=== PATIENT | male | born 1975 | race Native Hawaiian/Other Pacific Islander ===

== ENCOUNTER → 2017-05-02 | Outpatient (CLI) | payer BC ==
--- NOTE | 2017-05-02 09:37 | CT ---
EXAMINATION TYPE: CT lumbar spine wo con DATE OF EXAM: 05/02/2017 COMPARISON: NONE HISTORY: 41-year-old male Lumbar pain TECHNIQUE: Contiguous axial scanning of the lumbar spine without IV contrast. Coronal and sagittal re constructions performed. CT DLP: 957 mGycm Automated exposure control for dose reduction was used. FINDINGS: No prevertebral or paravertebral soft tissue abnormality. Transitional lumbosacral segment is noted as a lumbarized S1. Vertebral body heights are preserved. There is mild facet arthropathy in the lower lumbar spine. Trace grade 1 retrolisthesis at L4-L5. Bulging disks at multiple levels, notably at L2-L3, L4-L5, and L5-S1. At T12-L1, no canal or foraminal stenosis. L1-L2, no canal or foraminal stenosis. At L2-L3, mild diffuse disc bulge minimally impressing onto the ventral thecal sac. No significant ca nal or foraminal stenosis. At L3-L4, no significant canal or foraminal stenosis. At L4-L5, mild facet degenerative change with trace grade 1 retrolisthesis and diffuse disc bulge. Th is impresses on the ventral thecal sac without significant spinal canal stenosis. However, changes re sult in minimal inferior foraminal narrowing on the left and mild to moderate right neuroforaminal st enosis. At L5-S1, there is diffuse disc bulge and some endplate spurring particularly toward the left. Change s result in moderate left neural foraminal stenosis and mild right neuroforaminal stenosis. No spinal canal stenosis. IMPRESSION: 1. TRANSITIONAL LUMBOSACRAL SEGMENT IS NOTED A LUMBARIZED S1. 2. MILD MULTILEVEL DEGENERATIVE DISC DISEASE. BULGING DISCS AT L2-L3, L4-L5, AND L5-S1. SMALL DISC OS TEOPHYTE COMPLEX OFF TO THE LEFT AT L5-S1. 3. MILD FACET ARTHROPATHY LOWER LUMBAR SPINE WITH TRACE GRADE 1 RETROLISTHESIS AT L4-L5. 4. CHANGES RESULT IN [id number] RIGHT NEUROFORAMINAL STENOSIS AT L4-L5 AND MODERATE ON THE LEFT AT L5-S1.
== END | disposition home or self-care (01) ==
LOC: RADXRMAIN 08:01
PROVIDERS: ATTEND Family Medicine
DX: M51.36 Other intervertebral disc degeneration, lumbar region (principal); M51.27 Other intervertebral disc displacement, lumbosacral region; M43.16 Spondylolisthesis, lumbar region; M46.96 Unspecified inflammatory spondylopathy, lumbar region; M99.73 Connective tissue and disc stenosis of intervertebral foramina of lumbar region
CPT/HCPCS: 72131

== ENCOUNTER → 2017-06-08 | Outpatient (CLI) | payer BC ==
[2017-06-08 13:24] VITALS: BP 126/80; PULSE 85; RESP 16
--- NOTE | 2017-06-08 14:45 | P.CONS ---
History of Present Illness - Reason for Consult Consult date: 06/08/17 - Chief Complaint Lower back and right leg pain - History of Present Illness This is a 41-year-old male with a one-year history of lower back pain that has been getting worse lately and radiating down the right leg to the lateral aspect of the right thigh. The patient gets occasional numbness and tingling in the right leg however this feeling is not constant. The patient's pain is constant and he describes it as sharp and pressure-like. The pain gets worse with any Activity and improves by sitting on the right buttock. The pain is mostly on the right side of his spine right buttock and on the lateral aspect of the right thigh. His back pain is more intense than his right thigh pain. The patient denies any bowel or bladder dysfunction or any weakness in the lower extremities. This pain wakes the patient up at night however he denies any weight loss recently. The patient has been taking Motrin for his pain but he has not tried physical therapy. He does have history of migraine headache and neck pain for which she tried physical therapy previously with no good response to that. Social history: He lives by himself he denies using tobacco or illicit drugs he occasionally drinks alcohol. He works full-time at the [employer]. The lumbar spine MRI showed transitional lumbosacral segment, multilevel disc bulging and mild facet arthropathy with grade 1 retrolisthesis at L4 5 level. It also showed moderate right neural foraminal stenosis at the L4-5 level. Review of Systems All systems: negative Past Medical History Past Medical History: Sleep Apnea/CPAP/BIPAP Additional Past Medical History / Comment(s): migraine headaches History of Any Multi-Drug Resistant Organisms: None Reported Past Surgical History: Orthopedic Surgery Additional Past Surgical History / Comment(s): bilateral knee arthroscopy Past Anesthesia/Blood Transfusion Reactions: No Reported Reaction Past Psychological History: No Psychological Hx Reported Smoking Status: Never smoker Past Alcohol Use History: None Reported Past Drug Use History: None Reported Medications and Allergies Home Medications Medication Instructions Recorded Confirmed Type Ergocalciferol (Vitamin D2) 50,000 units PO WEEKLY 06/08/17 06/08/17 History [Vitamin D2] Ibuprofen [Motrin] 800 mg PO DAILY PRN 06/08/17 06/08/17 History SUMAtriptan SUCCINATE [Imitrex] 50 mg PO DAILY PRN 06/08/17 06/08/17 History Allergies Allergy/AdvReac Type Severity Reaction Status Date / Time No Known Allergies Allergy Verified 06/08/17 12:59 Physical Exam Vitals: Vital Signs Pulse Resp BP Pulse Ox 06/08/17 13:03 85 16 126/80 95 Intake and Output 06/07/17 06/08/17 06/08/17 22:59 06:59 14:59 Other: Weight 105.233 kg Patient Weight 06/09/17 06:59 Weight 105.233 kg - Constitutional General appearance: average body habitus, cooperative - Neurologic Neurologic: CNII-XII intact, focal deficits - Psychiatric Psychiatric: A&O x's 3, appropriate affect, intact judgment & insight Neuro exam of the lower extremities showed normal and symmetrical muscle strength and normal knee reflexes however he has absent ankle reflexes bilaterally and symmetrically. Jm's test mildly positive on the right side. Straight leg raising test positive at 60. He has tenderness in the lumbar paravertebral area on the right side. Facet loading test is positive. He has normal range of motion of the lumbar spine with more pain with flexion than with extension. Lungs are clear to auscultation Heart is regular Assessment and Plan Plan: This is a 41-year-old male with what seems to be right lumbar radiculopathy and lumbar arthropathy. The patient's pain is mostly on the right side of his spine and in the right leg. I will refer the patient to have physical therapy and also we'll schedule him for transforaminal epidural steroid injection at the L4 5 level on the right side using fluoroscopy for guidance. The above-mentioned procedure was explained to the patient and his questions were answered. I thank you for the referral.
== END | disposition home or self-care (01) ==
LOC: PNWHC3 12:50
PROVIDERS: ATTEND Anesthesiology
DX: G89.29 Other chronic pain (principal); F10.20 Alcohol dependence, uncomplicated; M99.73 Connective tissue and disc stenosis of intervertebral foramina of lumbar region; M51.16 Intervertebral disc disorders with radiculopathy, lumbar region; M43.16 Spondylolisthesis, lumbar region; M46.86 Other specified inflammatory spondylopathies, lumbar region; G47.33 Obstructive sleep apnea (adult) (pediatric); G43.909 Migraine, unspecified, not intractable, without status migrainosus; Z99.89 Dependence on other enabling machines and devices; Z98.890 Other specified postprocedural states; Z79.899 Other long term (current) drug therapy; Z79.1 Long term (current) use of non-steroidal anti-inflammatories (NSAID)
CPT/HCPCS: 99211

== ENCOUNTER 2017-06-09 08:36 | Day surgery (SDC) | payer BC ==
[~2017-06-09 08:36] MED LIST: LACTATED RINGERS 1,000 ML IV SCH
[2017-06-09 09:16] VITALS: TEMP 97.5
--- NOTE | 2017-06-09 11:09 | P.PCN ---
Date of Procedure: 06/09/17 Procedure(s) Performed: PREOPERATIVE DIAGNOSIS: Lumbar radiculopathy in right L4-5 distribution. Lumbar facet arthropathy. POSTOPERATIVE DIAGNOSIS: same as preop diagnosis PROCEDURE 1. Transforaminal epidural steroid injection under fluoroscopic guidance at right L4-5 level. 2. Lumbar epidurogram : ANESTHESIA: Local with 1% lidocaine 3 ml , moderate sedation with intravenous Versed 2 mg and fentanyle 100 micrograms. EBL: Minimal PROCEDURE INDICATION: The patient with low back pain and radiculopathy symptoms unresponsive to conservative treatment. PROCEDURE DESCRIPTION / TECHNIQUE: The patient was seen and identified in the preoperative area. Risks, benefits , complications, and alternatives were discussed with the patient. The patient agreed to proceed with the procedure and signed the consent. IV was started, and vital signs were stable. Patient was taken to the OR and time out was completed. The patient was placed in the prone position on procedure table and a pillow was placed under the abdomen to reduce lumbar lordosis. The lumbosacral area was prepped and draped in the usual sterile fashion. Critical pause was taken. Vital signs were closely monitored during the procedure. Conscious sedation was used during the procedure to decrease patients anxiety. Using oblique fluoroscopy, the chin of the ``Haider dog at right L4-5 level was identified, and the skin and deeper tissues just below was localized with 1 % lidocaine. Subsequently, a 22-gauge 3.5-inch spinal needle was advanced under a tunneled view fluoroscopic guidance just underneath the chin of the ``Haider dog at the L4-5 ,. Under lateral fluoroscopy, the needle was then advanced to the posterior border of the Right L4-5 interforaminal space. After negative aspiration of CSF and blood and with no paresthesias, 1 mL ofomnipaque-240 contrast dye was injected excellent epidurogram and outlining of the right nerve root Subsequently, 3 mL of block solution containing 20 mg Dexamethason and 2 mL of Lidocaine 1% was injected. Needle was removed and the skin was cleansed, and bandages were applied. COMPLICATIONS: None COMMENTS: DISPOSITION / PLANS: The patient was placed in a supine position and transferred to the recovery area in a stable condition for observation. There was no evidence of lower extremity motor or sensory deficit after the procedure. Patient was discharged from the recovery room after meeting discharge criteria. Home discharge instructions were given to the patient by the staff. The patient was reexamined prior to discharge.
[2017-06-09] MEDS ORDERED: IV FLUID CONTINUATION 600 ML IV ONE (11:18)
[2017-06-09 11:30] VITALS: RESP 16
[2017-06-09 11:32] VITALS: BP 114/73; PULSE 63
--- NOTE | 2017-06-09 14:07 | FL ---
Fluoroscopy History: Transforaminal injection. 9sec fluoro time, 3 images scanned
== END 2017-06-09 12:04 | disposition home or self-care (01) ==
LOC: ORPAIN 08:36
PROVIDERS: ATTEND Specialist
DX: M54.16 Radiculopathy, lumbar region (principal); M46.96 Unspecified inflammatory spondylopathy, lumbar region; G47.30 Sleep apnea, unspecified; Z99.89 Dependence on other enabling machines and devices
CPT/HCPCS: 64483; J2250; J3301; Q9965; J3010; 99152

== ENCOUNTER 2017-07-06 06:08 | Day surgery (SDC) | payer BC ==
[2017-07-05 11:55] VITALS: BMI 31.3
[2017-07-06 06:34] VITALS: TEMP 97.6
[2017-07-06] MEDS ORDERED: LACTATED RINGERS 1,000 ML IV ONE ×2 (06:43)
[2017-07-06] MEDS ORDERED: LIDOCAINE 1%-EPI 1:100,000 30 ML VIAL SQ ONE (06:44)
[2017-07-06] MEDS ORDERED: LACTATED RINGERS 1,000 ML IV SCH (07:00)
[2017-07-06] MEDS ORDERED: IV FLUID CONTINUATION 1,000 ML IV ONE ×2 (07:24)
[2017-07-06] MEDS ORDERED: ONDANSETRON 4 MG/2 ML VIAL IVP STA (07:27)
[2017-07-06] MEDS ORDERED: ONDANSETRON 4 MG/2 ML VIAL IVP ONE (07:29)
--- NOTE | 2017-07-06 07:31 | P.PCN ---
Date of Procedure: 07/06/17 Procedure(s) Performed: PREOPERATIVE DIAGNOSIS: 1- Lumbar Degenerative Disc Diseases 2-Lumbar spondylosis with Facet arthropathy without myelopathy 3-lumbar radiculopathy. POSTOPERATIVE DIAGNOSIS: 1-Lumber Degenerative Disc Diseases 2-Lumbar spondylosis with Facet arthropathy without myelopathy. 3-lumbar radiculopathy PROCEDURE 1. Lumbar epidural steroid injection under fluoroscopic guidance at the L4-5 level. 2. Lumbar epidurogram. ANESTHESIA: Local with 1% lidocaine 3 ml and , moderate sedation with intravenous Versed 2 mg ,and fentanyle 100 Mcg EBL: Minimal PROCEDURE INDICATION: The patient with low back pain and radiculitis symptoms unresponsive to conservative treatment. Fluoroscopy was used to optimize visualization of the needle placement and to maximize safety. Patient was scheduled to have transforaminal epidural steroid injection, but because patient had partial benefit to the transforaminal epidural steroid injection that was done a few weeks ago, and because patient had multilevel lumbar degenerative disc disease, I discussed with the patient the option of changing the procedure 2 lumbar epidural steroid injection, instead of transforaminal indiscreet patient could benefit more. PROCEDURE DESCRIPTION / TECHNIQUE: The patient was seen and identified in the preoperative area. Risks, benefits , complications including but not limited to infections ,bleeding ,allergic reaction to the medications ,nerve damage and not complete pain releife , and alternatives were discussed with the patient. The patient agreed to proceed with the procedure and signed the consent. IV was started, and vital signs were stable. Patient was taken to the OR and time out was completed. The patient was placed in the prone position on procedure table and a pillow was placed under the abdomen to reduce lumbar lordosis. The lumbosacral area was prepped and draped in the usual sterile fashion.ere closely monitored during the procedure. Conscious sedation was used during the procedure to decrease patients anxiety. Vital signs was monitered during the entire procedure. Using anterior-posterior fluoroscopy, the L4-5 interlaminar space was identified and the skin over this site was marked and then infiltrated with 1% lidocaine subcutaneously. Subsequently, a 20-gauge Tuohy epidural needle was inserted and advanced toward the epidural space using the ``Loss of resistance technique and guided by AP and lateral fluoroscopy. The correct needle position in the epidural space was verified with the injection of 2 mL of the water soluble contrast dye Omnipaque 180 contrast and observing an excellent epidurogram with the epidural spread of the dye, after negative aspiration for blood and CSF and in the absence of paresthesias. Again after negative aspiration, a 6 ml mixture containing 80 kenalog ,and 2 ml of preservative free Normal Saline, and 2 ml of preservative free lidocaine 1% solution was injected and a washout of epidurogram was seen. Needle was withdrawn intact, skin was cleansed, and bandages were applied. COMPLICATIONS: None DISPOSITION / PLANS: The patient was placed in a supine position and transferred to the recovery area in a stable condition for observation. There was no evidence of lower extremity motor or sensory deficit after the procedure. Patient was discharged from the recovery room after meeting discharge criteria. Home discharge instructions were given to the patient by the staff. The patient was reexamined prior to discharge. The patient will schedule a follow up in the clinic in 2-4 weeks.
[2017-07-06 07:41] VITALS: RESP 18
[2017-07-06 07:53] VITALS: BP 106/64; PULSE 65
--- NOTE | 2017-07-06 09:16 | FL ---
Fluoroscopy HISTORY: Pain 3 seconds fluoroscopy time supplied to the referring clinician. 1 intraoperative C-arm images docume nt the procedure. See dictated report from anesthesia.
== END 2017-07-06 08:33 | disposition home or self-care (01) ==
LOC: ORPAIN 06:08
PROVIDERS: ATTEND Specialist
DX: M51.16 Intervertebral disc disorders with radiculopathy, lumbar region (principal); M47.26 Other spondylosis with radiculopathy, lumbar region
CPT/HCPCS: 62323; J2250; J3301; J2405; J3010; Q9966; 64483

== ENCOUNTER 2017-07-06 20:58 | Emergency (ER) | payer BC ==
[2017-07-06 21:06] VITALS: TEMP 98.2
[2017-07-06] MEDS ORDERED: SODIUM CHLORIDE 0.9% 1,000 ML IV STA (21:49)
[2017-07-06] MEDS ORDERED: FAMOTIDINE 20 MG/2 ML VIAL IV STA (21:49)
[2017-07-06] MEDS ORDERED: MORPHINE SULFATE/PF 10MG/10ML VL IVP STA (21:49)
[2017-07-06] MEDS ORDERED: diphenhydrAMINE 50 MG/ML 1 ML VIAL IVP STA (21:49)
[2017-07-06] MEDS ORDERED: METOCLOPRAMIDE 5 MG/ML 2 ML VIAL IVP STA (21:49)
--- NOTE | 2017-07-06 21:56 | ED ---
General Adult HPI - General Chief complaint: Dizziness Stated complaint: post op complications Time Seen by Provider: 07/06/17 21:27 Source: patient, RN notes reviewed Mode of arrival: ambulatory Limitations: no limitations - History of Present Illness Initial comments: Patient is a pleasant 41-year-old male presenting to the emergency department for not feeling well after epidural injection. Patient did have epidural steroid injection done this morning with pain management. This was of his lower back. Patient states since that time he has been having nausea and lightheadedness and headache. Headache is positional and worse with upright position and improves with lying down. Patient has not been able to eat today. Patient has been drowsy today. No isolated area of weakness. No loss of control of bowel or bladder. - Related Data Home Medications Medication Instructions Recorded Confirmed Ergocalciferol (Vitamin D2) 50,000 units PO MO 06/08/17 07/06/17 [Vitamin D2] Ibuprofen [Motrin] 800 mg PO DAILY PRN 06/08/17 07/06/17 SUMAtriptan SUCCINATE [Imitrex] 50 mg PO DAILY PRN 06/08/17 07/06/17 Modafinil [Provigil] 200 mg PO DAILY 07/05/17 07/06/17 Topiramate [Trokendi Xr] 100 mg PO QAM 07/05/17 07/06/17 Pantoprazole Sodium [Protonix] 40 mg PO DAILY 07/06/17 07/06/17 Previous Rx's Medication Instructions Recorded Metoclopramide HCl [Reglan] 10 mg PO Q6HR PRN #15 tablet 07/06/17 Allergies Allergy/AdvReac Type Severity Reaction Status Date / Time No Known Allergies Allergy Verified 07/06/17 21:50 Review of Systems ROS Statement: Those systems with pertinent positive or pertinent negative responses have been documented in the HPI. ROS Other: All systems not noted in ROS Statement are negative. Constitutional: Denies: fever Eyes: Denies: eye pain ENT: Denies: ear pain Respiratory: Denies: cough Cardiovascular: Denies: chest pain Endocrine: Reports: fatigue Gastrointestinal: Reports: nausea. Denies: abdominal pain, vomiting Genitourinary: Denies: dysuria Musculoskeletal: Reports: back pain (Chronic and unchanged) Skin: Denies: rash Neurological: Reports: headache. Denies: weakness, confusion Past Medical History Past Medical History: GERD/Reflux, Sleep Apnea/CPAP/BIPAP Additional Past Medical History / Comment(s): migraines, bulging,herniated and fused disks L2-S1 History of Any Multi-Drug Resistant Organisms: None Reported Past Surgical History: Orthopedic Surgery Additional Past Surgical History / Comment(s): bilateral knee arthroscopy Past Anesthesia/Blood Transfusion Reactions: No Reported Reaction Past Psychological History: No Psychological Hx Reported Smoking Status: Never smoker Past Alcohol Use History: Occasional Past Drug Use History: None Reported - Past Family History Mother Family Medical History: No Reported History General Exam Limitations: no limitations General appearance: alert, in no apparent distress Head exam: Present: atraumatic Eye exam: Present: normal appearance, PERRL, EOMI. Absent: nystagmus ENT exam: Present: normal oropharynx Neck exam: Present: normal inspection. Absent: tenderness, meningismus Respiratory exam: Present: normal lung sounds bilaterally Cardiovascular Exam: Present: regular rate, normal rhythm GI/Abdominal exam: Present: soft. Absent: tenderness Extremities exam: Present: normal inspection Back exam: Present: normal inspection, other (No rash or swelling.). Absent: tenderness Neurological exam: Present: alert, CN II-XII intact. Absent: motor sensory deficit Psychiatric exam: Present: normal affect, normal mood Skin exam: Present: normal color. Absent: rash Course Vital Signs 07/06/17 07/06/17 21:04 22:14 Temperature 98.2 F Pulse Rate 84 76 Respiratory 16 18 Rate Blood Pressure 132/75 120/68 O2 Sat by Pulse 98 95 Oximetry Medical Decision Making - Medical Decision Making Patient reevaluated and states symptoms have improved and are tolerable at this time. Patient would like to try to go home and see if he continues to feel better. Patient is offered paging for anesthesiology for possible blood patch however does not want to do that at this time. He states if symptoms continue he will consider this tomorrow. Patient is advised to return if symptoms worsen or other concerns. Disposition Clinical Impression: Headache Disposition: HOME SELF-CARE Condition: Stable Instructions: Dizziness (ED), Acute Headache (ED) Additional Instructions: Please follow-up with primary care physician in the next day or 2 for recheck. Please also follow-up with Dr. Cobb in the next day or 2. If symptoms worsen you may be a candidate for blood patch. Return for increased pain, fevers, weakness, loss of control of bowel or bladder, redness or swelling, worsening symptoms or other concerns. Prescriptions: Metoclopramide HCl [Reglan] 10 mg PO Q6HR PRN #15 tablet PRN Reason: Nausea Referrals: Yuri Gee MD [Primary Care Provider] - 1-2 days Time of Disposition: 22:53
[2017-07-06 22:15] VITALS: BP 120/68; RESP 18
[2017-07-06] MEDS ORDERED: ACET/COD 300 MG/30 MG STARTER PACK 6 TAB BTL PO STA (22:53)
[2017-07-06 23:07] VITALS: PULSE 61
== END 2017-07-06 23:10 | disposition home or self-care (01) ==
LOC: EC 20:58
DX: R51 Headache (principal); R42 Dizziness and giddiness; R11.0 Nausea; K21.9 Gastro-esophageal reflux disease without esophagitis; G47.30 Sleep apnea, unspecified; Z86.69 Personal history of other diseases of the nervous system and sense organs; Z79.899 Other long term (current) drug therapy
CPT/HCPCS: 96361; 96374; 96375; 99284

== ENCOUNTER → 2017-07-12 | Day surgery (SDC) | payer BC ==
[2017-07-12 15:47] VITALS: RESP 18; TEMP 98.1
[2017-07-12 16:03] VITALS: BP 144/79; PULSE 86
--- NOTE | 2017-07-12 17:24 | P.PCN ---
Date of Procedure: 07/12/17 Procedure(s) Performed: Procedure= lumbar epidural blood patch. Preoperative diagnosis= postdural puncture headache. Postoperative diagnoses= post dural puncture headache. Indication for the procedure= patient developed headache after epidural steroid injection-, which was done last week, headache persists in spite of conservative treatment, there is no focal neurological deficit, no fever, no neck stiffness, headache worse with sitting and standing position, and improved with lying supine, for this reason patient is a good candidate for epidural blood patch. anesthesia= local infiltration with lidocaine 1% 3 mL. only Complications= none. Description of the procedure= patient identified risks and benefits of the procedure explained to the patient and patient agreed with proceeding, vital signs monitored during the procedure and IV sedation given to decrease anxiety, Back lumbar area prepped with chlorhexidine 3 times, then drape applied the local infiltration of the skin and subcutaneous tissue with lidocaine 1% 3 mL at L5-S1 interlaminar space then 18-gauge Tuohy needle advanced slowly at L5-S1 interlaminar space, There was positive loss of resistance to normal saline, no heme no paresthesia no cerebrospinal fluid, then after that the blood taken from the patient under strict sterile technique, and after the left antecubital area prepped with a chlorhexidine 3 times using 20-gauge Angiocath, and under sterile technique the 20 ML of the block taken from the patient injected in the epidural space after negative aspiration for heme or CSF and there was no paresthesia then the needle removed intact the skin cleaned and the , bandage applied and patient discharged home in stable condition after discharge criteria met, and patient will follow up with the clinic in 2-4 weeks
== END | disposition home or self-care (01) ==
LOC: PROCWHC3 15:09
PROVIDERS: ATTEND Specialist
DX: G97.1 Other reaction to spinal and lumbar puncture (principal); M51.36 Other intervertebral disc degeneration, lumbar region
CPT/HCPCS: 62273

== ENCOUNTER 2017-07-22 20:57 | Emergency (ER) | payer BC ==
[2017-07-22] MEDS ORDERED: SODIUM CHLORIDE 0.9% 500 ML IV ONE (21:28)
[2017-07-22 21:50] LABS: Basophils % (A) 0 %; Eosinophils # (A) 0.2 k/uL (0-0.7); Eosinophils % (A) 2 %; HCT 43.8 % (39.0-53.0); HGB 14.6 gm/dL (13.0-17.5); Lymphocytes # (A) 2.1 k/uL (1.0-4.8); Lymphocytes % (A) 20 %; MCH 30.2 pg (25.0-35.0); MCHC 33.4 g/dL (31.0-37.0); MCV 90.4 fL (80.0-100.0); Mean Platelet Volume 7.8; Monocytes # (A) 0.9 k/uL (0-1.0); Monocytes % (A) 8 %; Neutrophils % (A) 67 %; Platelet Count 271 k/uL (150-450); RBC 4.85 m/uL (4.30-5.90); RDW 13.1 % (11.5-15.5); WBC 10.5 k/uL (3.8-10.6)
--- NOTE | 2017-07-22 21:58 | XR ---
EXAMINATION TYPE: XR abdomen 2V DATE OF EXAM: 07/22/2017 COMPARISON: 02/25/2010 HISTORY: Abdominal pain TECHNIQUE: 3 views FINDINGS: Bowel gas pattern is normal. There is no sign of intestinal obstruction or pneumoperitoneum . Fecal pattern appears normal. There are no pathologic calcifications over the kidneys. Lung bases a re clear. IMPRESSION: Nonacute abdomen. No change.
[2017-07-22 22:01] LABS: Albumin 3.9 g/dL (3.5-5.0); Calcium 9.5 mg/dL (8.4-10.2); Potassium 3.6 mmol/L (3.5-5.1); Total Bilirubin 0.2 mg/dL (0.2-1.3); Total Protein 6.8 g/dL (6.3-8.2)
[2017-07-22 22:18] VITALS: PULSE 63; RESP 18
--- NOTE | 2017-07-22 22:39 | ED ---
General Adult HPI - General Chief complaint: GI Bleed Stated complaint: Rectal Bleeding Time Seen by Provider: 07/22/17 21:12 Source: patient, RN notes reviewed Mode of arrival: ambulatory Limitations: no limitations - History of Present Illness Initial comments: Chief complaint history of present illness a 41-year-old male here with a complaint of blood per rectum. The patient reports that while at home short while ago he had a hard bowel movement and then was followed by large amount of fresh appearing blood. When he wiped there was blood on the paper. Since then no bowel movement no blood. Patient denies any history of having any GI bleeding in the past. Denies history of fissures or hemorrhoids. Does not take narcotics, denies frequent episodes of constipation or hard stools. But he did have hard stool preceding denies bleeding. He also reports she's had some discomfort to the right lower quadrant for 3 or 4 days. No significant change in appetite. No nausea no vomiting. - Related Data Home Medications Medication Instructions Recorded Confirmed Ergocalciferol (Vitamin D2) 50,000 units PO MO 06/08/17 07/22/17 [Vitamin D2] Ibuprofen [Motrin] 800 mg PO DAILY PRN 06/08/17 07/22/17 SUMAtriptan SUCCINATE [Imitrex] 50 mg PO DAILY PRN 06/08/17 07/22/17 Topiramate [Trokendi Xr] 100 mg PO QAM 07/05/17 07/22/17 Pantoprazole Sodium [Protonix] 40 mg PO DAILY 07/06/17 07/22/17 Allergies Allergy/AdvReac Type Severity Reaction Status Date / Time No Known Allergies Allergy Verified 07/22/17 22:04 Review of Systems ROS Statement: Those systems with pertinent positive or pertinent negative responses have been documented in the HPI. Review of systems no headache chest pain shortness of breath or problems. He 's had right lower quadrant discomfort for 3 days. No change in appetite. No flank pain. No rectal pain. He did say he had some GI bleeding after passing a hard stool just prior to coming emergency room. All systems are reviewed. Patient denies any significant past medical problems GERD, sleep apnea and bulging disks [id number]. Patient has had both knees scoped. Patient denies any family history. Nonsmoker occasional alcohol use. No ALLERGIES. ROS Other: All systems not noted in ROS Statement are negative. Past Medical History Past Medical History: GERD/Reflux, Sleep Apnea/CPAP/BIPAP Additional Past Medical History / Comment(s): migraines, bulging,herniated and fused disks L2-S1 History of Any Multi-Drug Resistant Organisms: None Reported Past Surgical History: Orthopedic Surgery Additional Past Surgical History / Comment(s): bilateral knee arthroscopy Past Anesthesia/Blood Transfusion Reactions: No Reported Reaction Past Psychological History: No Psychological Hx Reported Smoking Status: Never smoker Past Alcohol Use History: Occasional Past Drug Use History: None Reported - Past Family History Mother Family Medical History: No Reported History General Exam - General Exam Comments Initial Comments: General: The patient is awake and alert, in no distress, and does not appear acutely ill. Neck: The neck is supple, Cardiovascular: No complaint chest pain, shortness of breath or palpitations. Respiratory: No shortness of breath or wheezing. Gastrointestinal: Mild discomfort with palpation to the right lower quadrant but no rebound or referred pain. Rectal exam there are some hemorrhoids but no apparent bleeding hemorrhoids. No fissure noted. Rectal exam no masses within the proximal one half inches. No blood on the examining finger. There is no tenderness to palpation in the midline. There is no obvious deformity. No rashes noted. Musculoskeletal: Normal upper and lower extremities Limitations: no limitations Course Vital Signs 07/22/17 07/22/17 07/23/17 20:59 22:17 00:58 Temperature 97.5 F L 97.4 F L Pulse Rate 89 63 63 Respiratory 16 18 18 Rate Blood Pressure 136/80 120/62 116/72 O2 Sat by Pulse 97 98 97 Oximetry Medical Decision Making - Medical Decision Making Medical decision making; the 41-year-old male here because of after having had passed a hard stool he noticed blood afterwards. Labs show white count 10 hemoglobin 14 hematocrit of 43 with a potassium 3.6. BUN 17 creatinine 1.3 GFR 69. Sugar 105. X-ray of the abdomen was done and reviewed by radiologist his impression is bowel gas pattern is normal. There is no sign of intestinal structure or pneumoperitoneum. Fecal pattern appears normal. There is no pathologic calcifications over the kidneys. Lung bases are clear. Impression nonacute abdomen. No changes. As read by Dr. Whitney Patient will have somewhat IV fluids. Still discomfort to the right lower quadrant. No rebound or referred pain. No blood per rectum since last examination. We discussed CT of the abdomen IV and oral contrast to rule out diverticulitis, or possibility of colitis or appendicitis. CT of the abdomen was done with IV and oral contrast. CT was reviewed by radiologist entire report was reviewed. Significant impression; negative computed tomography scan of the abdomen and pelvis. The radiologist does not see a cause for GI bleeding. Normal appendix. As read by Dr. Whitney I discussed with the patient the findings. The plant this size for the patient to follow-up with his family physician he will need a colonoscopy for further evaluation. If the bleeding continues or gets worse she is to return emergency room. - Lab Data Result diagrams: 07/22/17 21:38 07/22/17 21:38 Lab Results 07/22/17 07/22/17 Range/Units 21:38 21:38 WBC 10.5 (3.8-10.6) k/uL RBC 4.85 (4.30-5.90) m/uL Hgb 14.6 (13.0-17.5) gm/dL Hct 43.8 (39.0-53.0) % MCV 90.4 (80.0-100.0) fL MCH 30.2 (25.0-35.0) pg MCHC 33.4 (31.0-37.0) g/dL RDW 13.1 (11.5-15.5) % Plt Count 271 (150-450) k/uL Neutrophils % 67 % Lymphocytes % 20 % Monocytes % 8 % Eosinophils % 2 % Basophils % 0 % Neutrophils # 7.0 (1.3-7.7) k/uL Lymphocytes # 2.1 (1.0-4.8) k/uL Monocytes # 0.9 (0-1.0) k/uL Eosinophils # 0.2 (0-0.7) k/uL Basophils # 0.0 (0-0.2) k/uL Sodium 146 H (137-145) mmol/L Potassium 3.6 (3.5-5.1) mmol/L Chloride 109 H (98-107) mmol/L Carbon Dioxide 22 (22-30) mmol/L Anion Gap 15 mmol/L BUN 17 (9-20) mg/dL Creatinine 1.30 H (0.66-1.25) mg/dL Est GFR (CKD-EPI)AfAm 80 (>60 ml/min/1.73 sqM) Est GFR (CKD-EPI)NonAf 69 (>60 ml/min/1.73 sqM) Glucose 105 H (74-99) mg/dL Calcium 9.5 (8.4-10.2) mg/dL Total Bilirubin 0.2 (0.2-1.3) mg/dL AST 18 (17-59) U/L ALT 43 (21-72) U/L Alkaline Phosphatase 49 (38-126) U/L Total Protein 6.8 (6.3-8.2) g/dL Albumin 3.9 (3.5-5.0) g/dL Disposition Clinical Impression: Lower GI bleed Disposition: HOME SELF-CARE Condition: Good Instructions: Gastrointestinal Bleeding (ED) Additional Instructions: Monitor stool and rectal bleeding. Call follow up with your family physician. Return emergency room if there is significant change or increase. Return if you have pain. Strongly suggested further evaluation with colonoscopy. Take Tylenol for pain Referrals: Yuri Gee MD [Primary Care Provider] - 1-2 days Time of Disposition: 01:13
[2017-07-22] MEDS ORDERED: IOPAMIDOL-300 CONTRAST 30 ML VIAL (ORAL USE) PO PRN (22:45)
[2017-07-22] MEDS ORDERED: RX INFO: IV CONTRAST WAS GIVEN 1 EACH MISC MISCELLANE PRN (22:45)
[2017-07-23 00:59] VITALS: BP 116/72; TEMP 97.4
--- NOTE | 2017-07-23 01:08 | CT ---
EXAMINATION TYPE: CT abdomen pelvis w con DATE OF EXAM: 07/23/2017 COMPARISON: NONE HISTORY: GI bleed/bloody stool CT DLP: 1498.40 mGycm Automated exposure control for dose reduction was used. TECHNIQUE: Helical acquisition of images was performed from the lung bases through the pelvis. CONTRAST: Performed with Oral Contrast and with IV Contrast, patient injected with 100 mL of Isovue 300. FINDINGS: Lung bases are clear. There is no pleural effusion. There is no pericardial effusion. Heart appears b orderline enlarged. Liver spleen pancreas gallbladder appear normal. Bile ducts are not dilated. Gallbladder is contracte d. There is no adrenal mass. Kidneys show satisfactory contrast opacification. There is no hydronephrosi s. Ureters are not dilated. There is some fullness of the proximal right ureter. There is no evidence of a ureteral calculus. Delayed images show normal opacification of the collecting systems. I do not see evidence of renal obstruction. Appendix appears normal. The graft there is no retroperitoneal ad enopathy. I see no intestinal wall thickening. There are no dilated loops. Bladder distends smoothly. There is no sign of a pelvic mass. I see no bony destructive process. IMPRESSION: NEGATIVE CT SCAN OF THE ABDOMEN AND PELVIS. I DO NOT SEE A CAUSE FOR GI BLEEDING. NORMAL APPENDIX. BORDERLINE CARDIOMEGALY.
== END 2017-07-23 01:23 | disposition home or self-care (01) ==
LOC: EC 20:57
DX: K92.1 Melena (principal); G43.909 Migraine, unspecified, not intractable, without status migrainosus; K21.9 Gastro-esophageal reflux disease without esophagitis; G47.30 Sleep apnea, unspecified; Z99.89 Dependence on other enabling machines and devices; Z79.899 Other long term (current) drug therapy
CPT/HCPCS: 99285; 96360; 96361; 36415; 80053; 85025; 74019; 74177; Q9967

== ENCOUNTER 2017-09-01 07:04 | Day surgery (SDC) | payer BC ==
[2017-08-29 15:47] VITALS: BMI 31.4
[2017-09-01 07:31] VITALS: RESP 18; TEMP 98.4
[2017-09-01] MEDS ORDERED: LACTATED RINGERS 1,000 ML IV ONE (07:34)
[2017-09-01] MEDS ORDERED: LIDOCAINE 1% 20 ML VIAL (10MG/ML) FOR IV START INTRADERMA ONE (07:35)
--- NOTE | 2017-09-01 08:05 | P.PCN ---
Date of Procedure: 09/01/17 Surgeon: Alberto Kebede Description of Procedure: DESCRIPTION OF PROCEDURE(S): PREOPERATIVE DIAGNOSIS: Lumbar radiculopathy POSTOPERATIVE DIAGNOSIS: Lumbar radiculopathy PROCEDURE 1. Transforaminal epidural steroid injection under fluoroscopic guidance right L4 2. Lumbar epidurogram ANESTHESIA: Local with 1% lidocaine 3 ml ; IV sedation with Versed 2 mg and fentanyl 100 micrograms. PROCEDURE INDICATION: The patient with low back pain and radiculopathy symptoms unresponsive to conservative treatment. PROCEDURE DESCRIPTION / TECHNIQUE: The patient was seen and identified in the preoperative area. Risks, benefits, complications, and alternatives were discussed with the patient. The patient agreed to proceed with the procedure and signed the consent. IV was started, and vital signs were stable. Patient was taken to the OR and time out was completed. The patient was placed in the prone position on procedure table and a pillow was placed under the abdomen to reduce lumbar lordosis. The lumbosacral area was prepped and draped in the usual sterile fashion. Vital signs were closely monitored during the procedure. Conscious sedation was used. Using oblique fluoroscopy, the chin of the ``Haider dog and the skin and deeper tissues just below was localized with 1% lidocaine. Subsequently, a 22- gauge 3.5-inch spinal needle was advanced under a tunneled view fluoroscopic guidance just underneath the chin of the ``Haider dog . Under lateral fluoroscopy, the needle was then advanced to the posterior border of the foramen. After negative aspiration of CSF and blood and with no paresthesias, 1 mL of Omnipaque-240 contrast dye was injected and there was no evidence of intravascular injection. The injectate solution of 20 mg of Decadron and 1/2 mL of 0.5% Marcaine was then delivered. The needle was withdrawn intact. At the end of the procedure, skin was cleaned, and bandages were applied. COMPLICATIONS: None COMMENTS: DISPOSITION / PLANS: The patient was placed in a supine position and transferred to the recovery area in a stable condition for observation. There was no evidence of lower extremity motor or sensory deficit after the procedure. Patient was discharged from the recovery room after meeting discharge criteria. Home discharge instructions were given to the patient by the staff. The patient was reexamined prior to discharge. He will follow up for repeat of this procedure in the procedure room on an as-needed basis.
[2017-09-01] MEDS ORDERED: IV FLUID CONTINUATION 1,000 ML IV ONE (08:09)
[2017-09-01] MEDS ORDERED: LACTATED RINGERS 1,000 ML IV SCH (08:15)
[2017-09-01 08:30] VITALS: BP 125/78; PULSE 62
--- NOTE | 2017-09-01 08:34 | FL ---
Fluoroscopy HISTORY: Pain 5 seconds fluoroscopy time supplied to the referring clinician. 3 intraoperative C-arm images docume nt the procedure. See dictated report from anesthesia.
== END 2017-09-01 08:50 | disposition home or self-care (01) ==
LOC: ORPAIN 07:04
PROVIDERS: ATTEND Pain Medicine Pain Medicine
DX: M54.16 Radiculopathy, lumbar region (principal)
CPT/HCPCS: 64483; J2250; J3010

== ENCOUNTER 2017-09-27 07:45 | Day surgery (SDC) | payer BC ==
[2017-09-22 09:19] VITALS: BMI 31.4
[2017-09-27 08:46] VITALS: TEMP 97.8
[2017-09-27] MEDS ORDERED: LIDOCAINE 1% 20 ML VIAL (10MG/ML) FOR IV START INTRADERMA ONE (08:49)
[2017-09-27] MEDS ORDERED: LACTATED RINGERS 1,000 ML IV ONE (08:49)
[2017-09-27] MEDS ORDERED: LACTATED RINGERS 1,000 ML IV SCH (09:00)
[2017-09-27 10:15] VITALS: BP 118/65; PULSE 81; RESP 20
[2017-09-27] MEDS ORDERED: IV FLUID CONTINUATION 1,000 ML IV ONE (10:15)
--- NOTE | 2017-09-27 10:18 | P.PCN ---
Date of Procedure: 09/27/17 Surgeon: Woodrow Aragon Pathology: none sent Condition: stable Disposition: PACU Description of Procedure: PREOPERATIVE DIAGNOSIS: 1-Lumbar radiculitis POSTOPERATIVE DIAGNOSIS: 1-Lumbar radiculitis PROCEDURE: 1. Transforaminal epidural steroid injection under fluoroscopic guidance at right L4 level 2. Lumbar epidurogram. ANESTHESIA: Conscious sedation. EBL: Minimal PROCEDURE INDICATION: The patient with low back and leg pain that has been unresponsive to conservative management, #2 today. No use of blood thinners. Last procedure gave only 4 days' relief. PROCEDURE DESCRIPTION / TECHNIQUE: The patient was seen and identified in the preoperative area. Risks, benefits, complications, and alternatives were discussed with the patient, including but not limited to bleeding, infection, nerve damage, allergic reactions to medications, and incomplete pain relief. The patient agreed to proceed with the procedure and signed the consent after all questions were answered. IV was started, and vital signs were stable. Patient was taken to the OR and time out was completed to confirm patient position, procedure, laterality of pain, and allergies. The patient was placed in the prone position on procedure table and a pillow was placed under the abdomen to reduce lumbar lordosis. The lumbosacral area was prepped and draped in the usual sterile fashion. Critical pause was taken. Vital signs were closely monitored during the procedure. Conscious sedation was used during the procedure to decrease patients anxiety. Using oblique fluoroscopy, the chins of the Haider dog at right level were identified. After localization, a 22-gauge 3.5-inch spinal needle was advanced under a tunneled view fluoroscopic guidance just underneath the chin of the Haider dog at the right L4 vertebrae. Under lateral fluoroscopy, the needle was then advanced to the posterior border of the interforaminal spaces at the L4 level. After negative aspiration of CSF and blood and with no paresthesias, 0.5 mL of Isovue-200 contrast dye was injected at each level demonstrating excellent epidurogram and outlining the nerve roots. Subsequently, after repeat negative aspiration and confirmation of the epidurogram in the AP view, 3 mL of 3 ml block solution containing 20 mg of dexamethasone and 1 mL of PF 1% lidocaine was injected. At the end of the procedure, needles were removed intact, skin was cleansed, and bandages were applied. COMPLICATIONS: None DISPOSITION / PLANS: The patient was placed in a supine position and transferred to the recovery area in a stable condition for observation. There was no evidence of lower extremity motor or sensory deficit after the procedure. Patient was discharged from the recovery room after meeting discharge criteria. Home discharge instructions were given to the patient by the staff. The patient was reexamined prior to discharge and there were no issues. The patient will schedule a follow up in clinic in 4-6 weeks to discuss further options.
--- NOTE | 2017-09-27 11:09 | FL ---
EXAMINATION TYPE: FL guided pain mgmt statistic DATE OF EXAM: 09/27/2017 HISTORY: Flouroscopy time 10 seconds of fluoroscopy provided. IMPRESSION: 1. Fluoroscopy time.
== END 2017-09-27 10:19 | disposition home or self-care (01) ==
LOC: ORPAIN 07:45
PROVIDERS: ATTEND Anesthesiology
DX: M54.16 Radiculopathy, lumbar region (principal); G43.909 Migraine, unspecified, not intractable, without status migrainosus
CPT/HCPCS: 64483; J2250; J1100; J3010; Q9966